=== PATIENT | male | born 1985 | race Two or more races ===

== ENCOUNTER 2021-06-08 09:11 | Emergency (ER) | payer MEDICAID, SELFPAY ==
--- NOTE | ~2021-06-08 | XR_ITS ---
EXAMINATION: XR CHEST CLINICAL INFORMATION: Chest pain COMPARISON: April 24, 2019 TECHNIQUE: 2 views of the chest were obtained. FINDINGS: No significant abnormality is noted involving the heart, lungs, mediastinum, bony thorax or soft tissues. Neural stimulator wires posteriorly. XR/XR chest 2V IMPRESSION: No acute disease.
--- NOTE | 2021-06-08 09:50 | ECG_ITS ---
Test Reason : CHEST PAIN Blood Pressure : / mmHG Vent. Rate : 074 BPM Atrial Rate : 074 BPM P-R Int : 168 ms QRS Dur : 084 ms QT Int : 378 ms P-R-T Axes : 046 044 043 degrees QTc Int : 419 ms Normal sinus rhythm Normal ECG When compared with ECG of 19-FEB-2018 09:21, No significant change was found Referred By: Generic ED Physician Electronically Signed By:RENO HUTCHINSON MD
[2021-06-08 10:12] VITALS: BP 116/76; PULSE 65; RESP 14; O2SAT 98; BMI 27.9
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
[2021-06-08 11:16] LABS: MANUAL DIFF FLAG NO
[2021-06-08 11:19] LABS: Basophils Percent Auto 0.2 % (0-2); Eosinophils Absolute Auto 0.1 X10*3/uL (0.0-0.4); Eosinophils Percent Auto 1.4 % (0-4); Hematocrit 41.7 % (42-52); Imm Gran Abs Auto 0.02 X10*3/uL (0.00-0.03); Imm Gran Pct Auto 0.2 % (0.0-0.4); Lymphocytes Absolute Auto 2.1 X10*3/uL (1.2-4.9); Lymphocytes Percent Auto 24.5 % (20-40); Mean Corpuscular HGB Conc 33.6 g/dl (31.0-36.0); Mean Corpuscular Hemoglobin 29.7 pg (27.0-33.0); Mean Corpuscular Volume 88.5 fL (80-98); Mean Platelet Volume 8.9 fL (9.4-12.4); Monocytes Absolute Auto 0.5 X10*3/uL (0.1-1.2); Monocytes Percent Auto 5.3 % (2-11); Neutrophils Percent Auto 68.4 % (45-73); Platelet Count 210 X10*3/uL (160-400); Red Blood Count 4.71 X10*6/uL (4.60-5.80); Red Cell Distribution Width 13.1 % (11.0-16.0); White Blood Count 8.7 X10*3/uL (4.8-10.8)
[2021-06-08] MEDS: Ibuprofen 600 MG TABLET PO (11:33)
[2021-06-08 11:39] LABS: Alanine Aminotransferase 31 U/L (0-40); Albumin Level 4.1 g/dL (3.5-5.0); Alkaline Phosphatase 86 U/L (39-117); Anion Gap 10 (12-20); Aspartate Amino Transferase 24 U/L (5-37); Bilirubin Direct 0.2 mg/dL (0.0-0.5); Bilirubin Total 0.4 mg/dL (0.0-1.0); Blood Urea Nitrogen 13 mg/dL (9-16); Calcium 9.5 mg/dL (8.4-10.2); Carbon Dioxide 29 mmol/L (22-29); Chloride 105 mmol/L (96-108); Creatinine Clr Calc Pharmacy 117.7; Estimated Glomerular Filt Rate > 60; Glucose Random 106 mg/dL (60-115); Magnesium 2.1 mg/dL (1.6-2.6); Potassium 4.8 mmol/L (3.3-5.1); Sodium 139 mmol/L (135-145); Total Protein 6.6 g/dL (6.5-8.0)
[2021-06-08 11:44] LABS: Troponin-I High Sensitivity < 3.5 ng/L (<3.5-35.0)
[2021-06-08 13:14] VITALS: BP 121/76; PULSE 57; RESP 16; TEMP 36.5; O2SAT 97
[2021-06-08 13:46] LABS: Troponin-I High Sensitivity < 3.5 ng/L (<3.5-35.0)
== END 2021-06-08 13:57 | disposition home or self-care (01) ==
PROVIDERS: Physician Assistant; Emergency Provider Emergency Medicine
DX: R07.9 Chest pain, unspecified (principal); F17.210 Nicotine dependence, cigarettes, uncomplicated
CPT/HCPCS: 36415; 71046; 80048; 80076; 83735; 84484; 85025; 93005; 99283; 99284

== ENCOUNTER 2021-07-11 16:19 | Emergency (ER) | payer MEDICAID, SELFPAY ==
[2021-07-11 16:54] VITALS: BP 130/79; PULSE 92; RESP 18; TEMP 36.9; O2SAT 98; BMI 23.6
--- NOTE | 2021-07-11 18:01 | PC.NURSE ---
PT HAS SWELLING RIGHT CHEEK/UNDER EYE. WOKE UP WITH SWELLING. HAS GUM PAIN. TALKING AND MANAGING SECRETIONS. WAITING EVAL.
--- NOTE | 2021-07-11 18:15 | ED_ITS ---
HPI - General Adult General Chief complaint: General Medical Stated complaint: half of face swollen Time Seen by Provider: 07/11/21 18:00 Source: patient Mode of arrival: ambulatory Limitations: no limitations History of Present Illness HPI narrative: 36-year-old male who presents emergency department for evaluation of swelling and pain of his right face. The patient states he developed pain in his right upper gums/gingiva yesterday. He states that he had a prescription for penicillin and he started penicillin 500 mg 3 times a day. He states that today he woke up and the pain was worse. Describes the pain as a constant, throbbing sensation which is 8/10 at its worst. He is also complaining of swelling of the right side of his face and a headache. He states that the headache is a constant, throbbing pain which is 8/10 as well. He denied fever, chills, chest pain, shortness of breath, fatigue, myalgias, arthralgias. The patient denies any pain in the teeth that his right upper jaw, he states that he has some bad teeth in his right lower jaw. He states that he has been treated by the dentist at [facility] in the past. Related Data Previous Rx's Medication Instructions Recorded clindamycin HCl 300 mg capsule 600 mg PO TID 10 Days #60 cap 07/11/21 (Cleocin HCl) oxycodone 5 mg tablet 5 mg PO Q4H PRN #14 tab 07/11/21 Allergies Allergy/AdvReac Type Severity Reaction Status Date / Time No Known Allergies Allergy Verified 07/11/21 17:59 [No Known Allergies*] Review of Systems Review of Systems: Yes all other systems are reviewed and are negative [facility] Past Medical History [facility] Narrative: Past medical history: None. Past surgical history: None. Social history: He smokes 6-7 cigarettes per day times many years. He denies alcohol use. He denies drug use. Medical History (Updated 07/11/21 @ 18:26 by Sergo Vital MD) No known health problems Social History Social History Advance Directives: No Advance Directives Information Provided: Yes Physical Exam Vital Signs: Vital Signs: Last Vital Signs Temp 98.5 F 07/11/21 16:54 Pulse 92 07/11/21 16:54 Resp 18 07/11/21 16:54 BP 130/79 07/11/21 16:54 Pulse Ox 98 07/11/21 16:54 Body Mass Index 23.6 Const: Other: Patient has obvious right-sided facial swelling mainly involving the upper part of his face with edema below the right eye General: cooperative Nutritional Appearance: well nourished Orientation/consciousness: oriented to person and oriented to place HENMT: Other: Swelling of the right upper part of the face as described above Head: Yes normocephalic and Yes atraumatic Ears: external ears normal General nose exam: Normal external nose present Face and sinus: Yes normal facial exam Mouth: Normal oral and palatal mucosa present Teeth image: 1. Metal filling which appears crack 2. Metal filling which appears crack 3. Dental caries 4. Dental eladio 5. Gingival swelling with tenderness Throat: Yes posterior oropharynx normal Eyes: General: appearance normal, both eyes and all related structures (Except for edema beneath beneath the eye) Pupils: Equal, round and reactive pupils present EOM: EOMs intact bilaterally Neck: Neck: Yes normal visual inspection, Yes no meningeal signs, Yes trachea midline and Yes supple Chest: Chest palpation & inspection: normal inspection of the chest Resp: Effort & Inspection: normal respiratory effort Skin: General skin exam: no rashes or lesions noted Neuro: General: oriented to person, oriented to place and no meningeal signs Cranial nerves: Yes CN's II-XII intact bilaterally and Yes Equal, round and reactive pupils present Psych: Appearance: grossly normal Mental Status: mental status grossly normal Speech and movement: Normal speech and movement present Course Course Course Narrative: 36-year-old male who presents emergency department for evaluation of right upper jaw pain and right-sided upper facial swelling, examination did reveal right upper jaw gingival swelling with 2 teeth that have cracked feelings which I believe are the cause of his symptoms and is consistent with dental abscess/dental infection. The patient is taken 2 days of penicillin with no improvement therefore he is advised to stop taking penicillin and was started on clindamycin 600 mg 3 times a day for 10 days. He was also advised to take Tylenol and ibuprofen for pain and for pain not relieved by these medications he was prescribed oxycodone. Patient was discharged home. The patient was given verbal and printed instructions prior to discharge. The patient was advised to follow-up with his PCP in 2 days and to return to the emergency department if his symptoms get worse or if he develops any new symptoms that are concerning to him. Discharge Plan Discharge Clinical Impression: Dental abscess, Acute facial pain Patient Disposition: Home, Self-Care Instructions: Dental Abscess (ED) Additional Instructions: Your symptoms and exam are consistent with an abscess of your teeth which has spread to the gums which is causing the swelling of your face. Stop taking penicillin. Take clindamycin 600 mg, 1 pill 3 times a day (every 6 hours while awake) for 10 days. Take ibuprofen 200 mg pills, 3 pills every 6 hours as needed for pain. Take Tylenol (acetaminophen) 500 mg pills, 2 pills every 4-6 hours as needed for pain. For pain not relieved by ibuprofen or Tylenol take oxycodone 5 mg pills, 1 pill every 4 hours as needed for pain. Do not drive or work while taking this medication since they can cause sleepiness. Oxycodone is a narcotic medication that can be addicting. If you are concerned about addiction you can ask the pharmacist for less pills or do not get this prescription filled. Apply a heating pad on low for 15 minutes 4 to 6 times a day to your face to help increase the blood flow to the area of your face and help fight off the infection. Follow-up with your dentist tomorrow for re-evaluation. Please return to the emergency department if your symptoms get worse or if you develop any symptoms that are concerning to you. Prescriptions: New oxycodone 5 mg tablet 5 mg PO Q4H PRN (Reason: pain) Qty: 14 RF: 0 clindamycin HCl [Cleocin HCl] 300 mg capsule 600 mg PO TID 10 Days Qty: 60 RF: 0
[2021-07-11 18:21] VITALS: BP 114/67; PULSE 78; RESP 16; TEMP 36.4; O2SAT 99
[2021-07-11] MEDS: Clindamycin HCL 300 MG CAPSULE 600 MG PO (18:35)
[2021-07-11] MEDS: Ibuprofen 600 MG TABLET PO (18:36)
[2021-07-11] MEDS: oxyCODONE HCl Immed Release 5 MG TABLET PO (18:36)
== END 2021-07-11 18:42 | disposition home or self-care (01) ==
PROVIDERS: Emergency Provider Emergency Medicine Emergency Medical Services; PCP Internal Medicine Endocrinology, Diabetes & Metabolism
DX: K04.7 Periapical abscess without sinus (principal); R51.9 Headache, unspecified; Z79.899 Other long term (current) drug therapy
CPT/HCPCS: 99283; 99284

== ENCOUNTER 2022-12-19 23:21 | Emergency (ER) | payer MEDICAID, SELFPAY ==
--- NOTE | ~2022-12-19 | CT_ITS ---
EXAMINATION: HEAD CT WITHOUT CONTRAST CERVICAL SPINE CT WITHOUT CONTRAST CLINICAL INFORMATION: Fall. Swelling. COMPARISON: MRI dated 02/20/2017 TECHNIQUE: Contiguous axial imaging of the head was performed without the administration of IV contrast. Axial multidetector volumetric images were also performed through the cervical spine without intravenous contrast. Multiplanar reconstructed images in coronal and sagittal orientations were submitted. This CT examination was performed using dose optimization techniques as appropriate, variously including the following: *Automated exposure control *Adjustment of mA and/or kV according to patient size (this includes techniques or standardized protocols for targeted exams where dose is matched to indication/reason for exam; i.e. extremities or head) *Use of iterative reconstruction technique DOSE: 746 mGy-cm FINDINGS: HEAD: There is no evidence of acute intracranial hemorrhage or territorial infarction. No abnormal mass-effect or midline shift. No extra-axial fluid collections. Oneill to white matter differentiation is well preserved. The ventricles are normal in size and configuration. There is no abnormal attenuation within the brain parenchyma. The soft tissues and osseous structures are normal. The sinuses and mastoid air cells are clear. CERVICAL SPINE: Vertebral body heights are normal. No fractures of the vertebral bodies or posterior elements. Vertebral alignment is normal. No subluxation. The craniocervical and atlantoaxial articulations are normal. There is mild degenerative disc disease at C3-C4 and C5-C6 with loss of intervertebral disc height and vertebral osteophytes. There is abnormal morphology of the left T1-T2 facet joint, partially imaged. Facet joints are normal in cervical spine. Spinal stimulator leads are present in the dorsal epidural space between the level of the superior endplate of C3 and the interbody space of C5-C6. There is at least mild central canal narrowing at the level of C3-C4 due to posterior disc osteophyte complex. Uncovertebral osteophytes produce neural foraminal encroachment at C3-C4 and C5-C6 bilaterally. No significant paravertebral soft tissue swelling. Cervical soft tissues are unremarkable. Imaged portions of the lung apices are clear. CT/CT cervical spine wo IV con IMPRESSION: 1. No acute intracranial pathology. 2. No acute fracture or malalignment in the cervical spine. 3. Mild degenerative disc disease at C3-C4 and C5-C6.
[2022-12-19 23:29] VITALS: BP 106/73; PULSE 111; RESP 18; TEMP 36.6; O2SAT 96; BMI 25.0
--- OUTSIDE RECORDS SUMMARY | 2022-12-20 00:01 | XMS_ITS ---
:1985 Author Care Team Providers Name Role Phone Semaj Lester Primary Care Provider Unavailable Allergies Code Code System Name Reaction Severity Status Onset NKDA ? Notes: PER PT Medications Name Status Start Date Stop Date ? ? clonidine HCl 0.1 mg tablet Active ? Not available Take 1 tablet twice a day by oral route as needed. gabapentin 600 mg tablet Active ? Not gerald ilable Take 4 tablets every day by oral route. ibuprofen 800 mg tablet Active ? Not avai lable Take 1 tablet 3 times a day by oral route as needed. TAKE WITH FOOD. Narcan 4 mg/actuation nasal spray Active ? Not available Take 1 spray by nasal route. Suboxone 8 mg-2 mg sublingual film Active ? Not available Place 2 films every day by sublingual route. Problems Name Status Onset Date Source ? Opioid Dependence Active 07/05/2021 ? Nicotine Dependence with Current Use Active 07/05/2021 ? Procedures None recorded. Results Lab Results Date Name Specimen Result Interpretation Description Value Range Status Address ? 07/05/2021 CBC W/ Normal White Blood 8.1 3.8-10.8 Final [facility] Cell Count thousand/uL thousand/uL [facility]- [facility] [place] [facility]: [address] [place] ? ? Normal Red Blood 4.68 4.20-5.80 Final [facility] st Cell Count million/uL million/uL Diagnostics- [place] [facility]: [address] [place] ? ? Normal Hemoglobin 14.2 g/dL 13.2-17.1 Final [facility] g/dL Diagnostic s- [place] [facility]: [address] [place] ? ? Normal Hematocrit 41.3 % 38.5-50.0 % Final [facility] [place] [facility]: [address] [place] ? ? Normal Mcv 88.2 fL 80.0-100.0 Final [facility] fL [facility]- [place] [facility]: [address] [place] ? ? Normal Mch 30.3 pg 27.0-33.0 pg Final [facility] st Diagnostic s- [place] [facility]: [address] [place] ? ? Normal Mchc 34.4 g/dL 32.0-36.0 Final Ques t g/dL Diagnostic s- [place] [facility]: [address] [place] ? ? Normal Rdw 13.0 % 11.0-15.0 % Final [facility] [place] [facility]: [address] [place] ? ? Normal Platelet 262 140-400 Final [facility] Count thousand/uL thousand/uL [facility]- [place] [facility]: [address] [place] ? ? Normal Mpv 9.2 fL 7.5-12.5 fL Final [facility] [place] [facility]: [address] [place] ? ? Normal Absolute [phone] Final Ques t Neutrophils cells/uL cells/uL D iagnostics- [place] [facility]: [address] [place] ? ? Normal Absolute 3070 850-3900 Final [facility] Lymphocytes cells/uL cells/uL D [facility]agn[facility]- [place] [facility]: [address] [place] ? ? Normal Absolute 567 cells/uL 200-950 Final [facility] Monocytes cells/uL Diagn ost[facility]- [place] [facility]: [address] [place] ? ? Normal Absolute 57 cells/uL 15-500 Final Qu est Eosinophils cells/uL [facility]- [place] [facility]: [address] [place] ? ? Normal Absolute 41 cells/uL 0-200 Final Qu est Basophils cells/uL Diagn ost[facility]- [place] [facility]: [address] [place] ? ? Normal Neutrophils 53.9 % ? Final [facility] t Diagnostic [facility]- [place] [facility]: [address] [place] ? ? Normal Lymphocytes 37.9 % ? Final [facility]- [place] [facility]: [address] [place] ? ? Normal Monocytes 7.0 % ? Final [facility] [place] [facility]: [address] [place] ? ? Normal Eosinophils 0.7 % ? Final [facility] t [facility]- [place] [facility]: [address] [place] ? ? Normal Basophils 0.5 % ? Final [facility] [place] [facility]: [address] [place] Past Encounters Encounter Date Diagnosis Provider 07/07/2021 Opioid Dependence Suki Kirkpatrick, NETWORK SECURITY ARCHITECT: [address] [place] [address], [facility] [address] [address], Ph. [phone] 07/05/2021 Opioid Dependence; Nicotine Semaj Lester, NETWORK SECURITY ARCHITECT: [address] [place] [address] Dependence [place] [address], Ph. Social History Tobacco Smoking Status Heavy Tobacco Smoker (1/2 pack per da y) Vaccine List Notes: no counselor currently-interest ed in counseling Plan of Care Patient Instructions As part of your individualized treatmen t plan and program requirement, you will need to bring your correct prescription bottl e and all used and unused medication and counseling verification to each appointm ent; > Agree to participate in counseling and bring counseling verification to each ap pointment; > Agree to present for random visits; > Agree to not falsify your urin e specimens. Abstain from opiates for 24 hours unles s directed by provider; > If already taking buprenorphine, do not take a dose the day of the induction until you are in the office with your provider; > Com fort medications were recommended. If ac cepted, please take as prescribed to support your ability to abstain from opiates until your buprenorphine induction; > Keep your buprenorphine RX package clos ed until you are seen by your provider f or induction unless otherwise directed; If you have problems abstaining from opiates, please call the office. As part of your individualized treatmen t plan and program requirement, you will need to bring your correct prescription bottle and all used and unused medication and counseling verification to each chelly ointment; > Agree to participate in coun seling and bring counseling verification to each appointment; > Agree to present for random visits; > Agree to not falsify your urine specimens. Reminders Provider Appointments None recorded. ? ? Lab None recorded. ? ? Referral None recorded. ? ? Procedures None recorded. ? ? Surgeries None recorded. ? ? Imaging None recorded. ? ? Vitals None recorded.
--- NOTE | 2022-12-20 00:48 | ED.FALL ---
HPI - Fall General Chief Complaint: Fall Stated Complaint: head inj from fall? Time Seen by Provider: 12/20/22 00:47 Source: patient Mode of arrival: ambulatory Limitations: no limitations History of Present Illness HPI Narrative: Nan patient fell down while going downstairs to basement about an hour prior to arrival tripped on tools on the stairs hit right side of the head to the wall and the ground came with a scratch arnold and swelling right temporal area no loss of consciousness no other injuries complaining of headache+ no nausea no vomiting Related Data Previous Rx's Medication Instructions Recorded clindamycin HCl 300 mg capsule 600 mg PO TID 10 days #60 caps 07/11/21 (Cleocin HCl) oxycodone 5 mg tablet 5 mg PO Q4H PRN pain #14 tabs 07/11/21 Allergies Allergy/AdvReac Type Severity Reaction Status Date / Time No Known Allergies Allergy Verified 12/19/22 23:29 [No Known Allergies*] Review of Systems Review of Systems: Yes all other systems are reviewed and are negative [facility] Past Medical History Medical History No known health problems Social History Social History Advance Directives: No Advance Directives Information Provided: Yes Physical Exam Vital Signs: Vital Signs: Last Vital Signs Temp 97.9 F 12/19/22 23:29 Pulse 111 H 12/19/22 23:29 Resp 18 12/19/22 23:29 BP 106/73 12/19/22 23:29 Pulse Ox 96 12/19/22 23:29 O2 Del Method 12/19/22 23:29 BMI result Body Mass Index 25.0 Appearance: Alert. Oriented X3. No acute distress. Eyes: PERRLA, No Nystagmus ENT: Pharynx normal. Oral Mucosa moist tympanic membrane intact no discharge no hemotympanum Neck: Normal inspection. Neck supple. CVS: Normal heart rate and rhythm. Pulses normal. Respiratory: No respiratory distress. Equal air entry bilateral, no wheezing/rales/rhonchi Abdomen: Soft and nontender. Bowel sounds are present, no mass palpable, no CVA tenderness Skin: Skin warm and dry. Normal skin color. Normal skin turgor. Extremities: No lower extremity edema. No calf tenderness Neuro: Oriented X 3. No motor deficit. No sensory deficit.No cerebellar signs , cranial nerves II-XII intact HEENT: Head images: 1. Soft tissue swelling with abrasion be in the right ear Ears: hearing grossly normal bilaterally and TM's normal bilaterally Outer ear/TM images: 1. 0.5 cm superficial laceration Procedures Laceration Laceration 1: Size (cm): 0.5 Description: linear and clean Depth: simple, single layer Skin layer closed with: other (Dermabond) Medical Decision Making Medical Decision Making [facility] Narrative: Patient had CT and C-spine negative had sutures laceration right pinna which was glued with Dermabond Discharge Plan Discharge Clinical Impression: Head injury Patient Disposition: Home, Self-Care Instructions: Head Injury (ED) Additional Instructions: Care and cautions advised Tylenol/ Motrin for pain Prescriptions: No Action oxycodone 5 mg tablet 5 mg PO Q4H PRN (Reason: pain) Qty: 14 0RF Rx Instructions: Patient may request partial fill clindamycin HCl [Cleocin HCl] 300 mg capsule 600 mg PO TID 10 Days Qty: 60 0RF Discharge Date/Time: 12/20/22 03:45
== END 2022-12-20 03:45 | disposition home or self-care (01) ==
PROVIDERS: Emergency Provider Internal Medicine
DX: S01.01XA Laceration without foreign body of scalp, initial encounter (principal); S01.91XA Laceration without foreign body of unspecified part of head, initial encounter; R51.9 Headache, unspecified; M54.2 Cervicalgia; W01.0XXA Fall on same level from slipping, tripping and stumbling without subsequent striking against object, initial encounter; Y93.9 Activity, unspecified; Y92.9 Unspecified place or not applicable; Y99.9 Unspecified external cause status
CPT/HCPCS: 12011; 70450; 72125; 99281; 99284

== ENCOUNTER 2024-10-13 11:53 | Emergency (ER) | payer MEDICAID, SELFPAY ==
[2024-10-13 12:03] VITALS: BP 109/79; PULSE 81; RESP 16; TEMP 36.7; O2SAT 97; BMI 26.4
--- NOTE | 2024-10-13 12:06 | ED.GENADULT ---
HPI - General Adult General Chief complaint: Wound/Laceration Stated complaint: Lac R arm Time Seen by Provider: 10/13/24 14:26 Source: patient Mode of arrival: ambulatory Limitations: no limitations History of Present Illness ED Provider: Colton Bond HPI narrative: 39 yold male healthy presents to the ED right forearm laceration. patient fell in the shower and cut his arm on metal bar in the shower. Patient denies hitting head or loss of concssouness. Related Data Previous Rx's ?Medication ?Instructions ?Recorded clindamycin HCl 300 mg capsule 600 mg (2 x 300 mg) PO TID 10 days 07/11/21 (Cleocin HCl) #60 caps oxycodone 5 mg tablet 5 mg PO Q4H PRN pain #14 tabs 07/11/21 cephalexin 500 mg capsule 500 mg PO QID 7 days #28 caps 10/13/24 naproxen 500 mg tablet 500 mg PO BID PRN pain #14 tabs 10/13/24 Allergies Allergy/AdvReac Type Severity Reaction Status Date / Time No Known Allergies Allergy Verified 10/13/24 12:04 [No Known Allergies*] Review of Systems Review of Systems: Right forearm laceration Yes all other systems are reviewed and are negative PMFSH Past Medical History Medical History No known health problems Social History Social History Advance Directives: No Advance Directives Information Provided: Yes Physical Exam ED Vital Signs: Vital Signs - 24 hr 10/13/24 12:03 10/13/24 14:15 10/13/24 16:39 Temperature 98.0 F 98.8 F 97.8 F Pulse Rate 81 78 64 Respiratory Rate 16 16 16 Blood Pressure 109/79 123/74 128/73 Pulse Oximetry 97 95 99 Oxygen Delivery Method Room Air Room Air Room Air 10/13/24 16:43 Temperature 97.8 F Pulse Rate 64 Respiratory Rate 16 Blood Pressure 128/73 Pulse Oximetry 99 Oxygen Delivery Method Room Air BMI result Body Mass Index 26.4 Const General: cooperative, healthy appearing, comfortable, no acute distress, well developed, alert, awake and Physically active Orientation/consciousness: patient oriented x3 HENMT Head: Yes normal to inspection, Yes No palpable skull fracture present, Yes normocephalic and Yes atraumatic Eyes General: appearance normal, both eyes and all related structures Neck Neck: Yes normal visual inspection, Yes full ROM, Yes no lymphadenopathy, Yes no meningeal signs, Yes trachea midline, Yes supple, No anterior neck swelling and No tender Chest Chest palpation & inspection: normal inspection of the chest and normal palpation of entire chest wall Resp Effort & Inspection: normal respiratory effort and able to speak in complete sentences Auscultation: clear to auscultation bilaterally Cardio Jugular venous distension: no JVD Heart sounds: S1 normal heart sound present and S2 normal heart sound present GI Inspection: Yes normal to inspection Palpation (GI): Soft to palpation, not firm, nontender, no guarding and not rigid General: No CVA tenderness and Yes no CVA tenderness Back/Spine/Pelvis Back: no CVA tenderness, No CVA tenderness and No back tenderness Skin Other: right forearm laceration Neuro General: patient oriented x3, gait normal, tone normal, moves all extremities, Normal light touch and pain sensation, no meningeal signs, no focal motor deficits, CN's II-XI intact bilaterally and normal sensation to monofilament Extrem General: Yes normal to inspection, Yes full ROM and Yes capillary refill normal Elbow/forearm/wrist images: 1. Positive for 3 mm laceration. Bleeding controlled. Rest of extremity normal. Motor/neuro/vascular exam intact. Washed out no foreign body Psych Appearance: grossly normal, well kempt and not disheveled Course Course Course Narrative: RME, this is a rapid medical exam performed by Cruz Goodwin please refer to primary provider for complete H&P- 39-year-old male presents for evaluation of a laceration to his right forearm. He reports that he slipped in the shower due to a known history of foot drop. He cut his arm on a metal bar next to the shower. He has about a 3 cm wound. He reports his tetanus is up-to-date within the last 5 years. Medications Administered Discontinued Medications Generic Name Dose Route Start Last Admin Trade Name Freq PRN Reason Stop Dose Admin Lidocaine HCl 5 ml 10/13/24 14:56 10/13/24 15:26 Lidocaine Hcl 1 % Mpf 5 Ml Vial INFILTRATI 10/13/24 14:57 5 ml ONCE ONE Administration Lidocaine HCl 5 ml 10/13/24 14:56 10/13/24 15:26 Lidocaine Hcl 1 % Mpf 5 Ml Vial INFILTRATI 10/13/24 14:57 5 ml ONCE ONE Administration Medical Decision Making Medical Decision Making [facility] Narrative: 39-year-old male presents to ED for right arm forearm laceration. Patient states uptodate with Tdap. Wound cleaned with sterile saline and Betadine iodine. 10 mL of 1% lidocaine injected for anesthesia of laceration. Size 3 nylon sutures were used. one vertical mattress suture was placed. Seven simple sutures were placed also. Patient will be discharged with antibiotics. Not suspecting any osteomyelitis, cellulitis, tendon/nerve injury, diloscation, fracture, brain bleed, skull fracture, any other life-threatening etiology. Patient explained worrisome signs and informed to return to the ED immediately. Differential Diagnosis Differential Diagnoses: The differential diagnosis associated with the presentation includes (Laceration) Admission/Observation Consideration of admission/observation: Escalation of care including admission/observation considered Lab Data [facility] Lab Attestation statement: I reviewed the patient's lab results. Independent Historian Clinical information obtained from an independent historian. History obtained from or confirmed by: Other (Patient) External Record Review External record reviewed: Other (Prior visits) Prescription Management I considered prescription management with: Antibiotic Discharge Plan Discharge Clinical Impression: Laceration Patient Disposition: Home, Self-Care Instructions: Laceration (ED) Additional Instructions: Sutures to be dry the 1st 48 hours. Sutures should be removed at any urgent Care this ED or primary care with in the next 10-11 days. Return to the ED immediately for any redness, pus discharge, foul odor, red streaks, bluish black discoloration, fever, chills, severe pain, or any other concerning symptoms. Prescriptions: New cephalexin 500 mg capsule 500 mg PO QID 7 Days Qty: 28 0RF naproxen 500 mg tablet 500 mg PO BID PRN (Reason: pain) Qty: 14 0RF No Action oxycodone 5 mg tablet 5 mg PO Q4H PRN (Reason: pain) Qty: 14 0RF Rx Instructions: Patient may request partial fill clindamycin HCl [Cleocin HCl] 300 mg capsule 600 mg PO TID 10 Days Qty: 60 0RF Stand Alone Forms: Work/School Release Interventions: ED Discharge Assessment Last Done: 10/13/24 16:43 Discharge Date/Time: 10/13/24 16:43 Print Language: Belarusian
[2024-10-13 14:15] VITALS: BP 123/74; PULSE 78; RESP 16; TEMP 37.1; O2SAT 95
[2024-10-13] MEDS: Lidocaine HCl 1 % MPF 5 ML VIAL INFILTRATI ×2 (15:26)
[2024-10-13 16:39] VITALS: BP 128/73; PULSE 64; RESP 16; TEMP 36.6; O2SAT 99
--- NOTE | 2024-10-13 16:42 | PC.NURSE ---
Cleaned and wrapped pt.'s sutures with a non-stick gauze, wrapped with bulkee dressing per verbal orders of FLETCHER Beltran.
[2024-10-13 16:43] VITALS: BP 128/73; PULSE 64; RESP 16; TEMP 36.6; O2SAT 99
== END 2024-10-13 16:43 | disposition home or self-care (01) ==
PROVIDERS: Emergency Provider Emergency Medicine Emergency Medical Services; PCP Internal Medicine Geriatric Medicine
DX: S51.811A Laceration without foreign body of right forearm, initial encounter (principal); W18.2XXA Fall in (into) shower or empty bathtub, initial encounter; M79.631 Pain in right forearm; Y93.E1 Activity, personal bathing and showering; Y92.002 Bathroom of unspecified non-institutional (private) residence as the place of occurrence of the external cause; Y99.9 Unspecified external cause status
CPT/HCPCS: 12002; 99283; 99284; J2003

== ENCOUNTER 2025-08-05 12:58 | Outpatient (AMB) | payer MEDICAID, SELFPAY ==
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
== END 2025-08-05 13:37 | disposition home or self-care (01) ==
LOC: HO.HUSH 12:59
PROVIDERS: PCP Internal Medicine Geriatric Medicine; Visit Provider Urology
DX: N52.8 Other male erectile dysfunction (principal); N40.1 Benign prostatic hyperplasia with lower urinary tract symptoms; R33.9 Retention of urine, unspecified
CPT/HCPCS: 99204

== ENCOUNTER → 2025-08-05 12:58 | Outpatient (BNVA) | payer MEDICAID, SELFPAY | PROVIDERS: PCP Internal Medicine Geriatric Medicine; Visit Provider Urology | DX: N40.1 Benign prostatic hyperplasia with lower urinary tract symptoms (principal); R33.9 Retention of urine, unspecified; N52.8 Other male erectile dysfunction | CPT/HCPCS: 51798; 99202 ==

== ENCOUNTER 2025-10-02 08:37 | Outpatient (REF) | payer MEDICAID, SELFPAY ==
--- OUTSIDE RECORDS SUMMARY | 2022-11-09 07:07 | XMS_ITS | Continuity of Care Document ---
Author Organization [facility] Address [address] [place] [address] Phone Care Team Providers Care [employer] Name Role Phone Unavailable Unavailable Unavailable Allergies, Adverse Reactions, Alerts Substance Reaction Status Criticality No Known Allergies Active No Inform ation Medications Medication Instructions Dosage Effective Dates (start - stop) Status Comments guaifenesin 100 mg/5 mL oral liquid take 10 milliliter by oral route every 4 hours as needed 200 MG - Active ibuprofen 800 mg tablet take 1 tablet by oral route 3 times every day with food 800 MG - Active lidocaine 5 % topical patch apply 1 patch by transdermal route every day (May wear up to 12hours.) for left rib pain 1.00 patch - Active triamcinolone acetonide 0.1 % topical ointment apply by topical route 2 times every day a thin layer to the affected area(s) for left neck 0.00 - Active Procedures Procedure Date OFFICE/OUTPATIENT VISIT, EST IMMUNIZATION ADMIN TDAP VACCINE >7 IM OFFICE/OUTPATIENT VISIT, NEW Advance Directives Directive Yes / No Effective Date File Name No Information Encounters Encounter Description Practice Location Reason(s) For Visit Diagnoses Date Provider Providers Copied on Encounter [facility], [address] [place] [address],[address], [place], [place], [id number], [place] tel:[phone] No Information Jairo-1 3-202 3 No Information OFFICE/OUTPA TIENT VISIT, [facility], [address], [place], [place], [id number], [place] tel:[phone] [facility] Cold symptoms (chief complaint) COVID-19 1 No Information OFFICE/OUTPA TIENT VISIT, NEW [facility], [address], [place], [place], [id number], [place] tel:[phone] [facility] Follow Up of ER (chief complaint) Musculoske letal pain (chief complaint) Sprain of costal cartilage, subsequent encounterScree breanna cholesterol levelScreening for diabetes mellitusDermat itis 9 No Information Family History Family Member Type Diagnosis Age At Onset No Information Immunizations Vaccine Date Status Comments Tdap (Adacel) administered Source: New munization Record Payers Payer name Insurance type Covered libertarian ID Authorreginoa dipika(s) [facility] [id number] [facility] [id number] [facility] [id number] [facility] [id number] Social History Type Description Quantity Date Captured Comments Alcohol Use Details Unknown Caffeine Use Details Unknown Tobacco Use Status No Information Smoking Status No Information Sex Male Sexual Orientation Straight or heterosexual Chief Complaint And Reason For Visit No Information Reason For Referral Reason For Referral No Information Plan Of Treatment Date Type Action Status Goal Colonoscopy. Due on 023 due Goal Tdap due Goal APE. Due on due Goal CT-Colonography. Due on due Goal Unhealthy drug use screening . Due on due Goal Document SOGI Information. D ue on due Goal FIT-DNA. Due on due Goal FOBT. Due on due Goal Diabetes Screening. Due on Bobby an due Goal Influenza vaccine. Due on Michael due Goal Unhealthy drug use screening . Due on due Goal APE. Due on due Goal Influenza vaccine. Due on Jorgito due Goal Document SOGI Information. D ue on due Goal Tdap due Goal Diabetes Screening. Due on Danitza due Goal Document SOGI Information. D ue on due Goal Influenza vaccine. Due on due Goal Tdap. Due on due Goal APE. Due on due Goal Diabetes Screening. Due on Danitza due History Of Present Illness Encounter Date Complaint History Of Prese nt Illness Cold symptoms Onset: 3 weeks a go. The patient describes the cough as moist and productive. The problem has improved. Associated symptoms include headache. Pertinent negatives include chills, cough, dyspnea, fatigue and fever. Additional information: Positive COVID 02/11. No known positive contact. most sx resolved <1 week ago. quarantine ended 02/24. I don't know why I still have a cough . Musculoskeletal pain Onset: 1 we ek ago. Severity level is 4. It occurs intermittently and is improving. Location: left rib. Context: sports injury (soccer). The pain is aggravated by bending and movement. The pain is relieved by pain/RX meds and lidoderm has 1 left. 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 Follow Up of ER NPP and provider last visit to PCP in [place] several mos ago Functional Status Date Functional Assessmen t No Information Instructions Date Instruction Additional Infor mation No Information Assessments Type Assessment Date No Information Patient Care Teams Name Effective Dates (start - stop) Status Members No Information
--- OUTSIDE RECORDS SUMMARY | 2025-10-02 08:39 | XMS_ITS | Encounter Summary ---
Author Organization [facility] Address [address] [place] [address] Care Team Providers Care Emissions Testing And Repair Technician Name Role Phone Name, Rex TREJO Primary Care Provider [phone] Name, Rex TREJO Primary Care Provider [phone] Reason for Visit * Reason Comments Med Refill Encounter Details Date Type Department Care Team (Late st Contact Info) Description 06/27/2023 Refill [facility] MEDICINE [address] [place] [id number] Bijal Whitlock FNP [address], [place] [phone] Other chronic pain Social History Tobacco Use Types Packs/Day Years Used Date Smoking Tobacco: Never Assessed Sex and Gender Information Value Date Recorded Sex Assigned at Male 08/27/2022 10:31 AM EDT Legal Sex Male 10:31 AM EDT Gender Identity Male 08/27/2022 10:31 AM EDT Sexual Orientation Straight 08/27/2022 10 :31 AM EDT documented as of this encounter Plan of Treatment Upcoming Encounters Date Type Department Care Team (Late st Contact Info) Description 10/04/2025 2:45 PM EST Office Visit [facility] MEDICINE [address] [place] [id number] NameRex MD [address] [place] [address] documented as of this encounter Visit Diagnoses Diagnosis Other chronic pain documented in this encounter Care Teams Emissions Testing And Repair Technician Relationship Specialty Start Date End Date NameRex MD [address] [place] [id number] PCP - General Family Medicine 7/29/19 1/4/24 Name, MD Rex [address] [place] [address] PCP - General Internal Medicine 01/14/24 documented as of this encounter
--- OUTSIDE RECORDS SUMMARY | 2025-10-02 08:39 | XMS_ITS | Encounter Summary ---
Author Organization [facility] Address [address] [place] [address] Care Team Providers Care Grading Supervisor Name Role Phone Name, Rex TREJO Primary Care Provider [phone] Name, Rex TREJO Primary Care Provider [phone] Reason for Visit * Reason Comments Med Refill Encounter Details Date Type Department Care Team (Late st Contact Info) Description 06/27/[address] [facility] MEDICINE [address] [place] [address] NameRex MD [address] [place] [address] Social History Tobacco Use Types Packs/Day Years [...] Description 10/04/2025 2:45 PM EST Office Visit [facility] MEDICINE [address] [place] [phone] NameRex MD [address] [place] [address] documented as of this encounter Visit Diagnoses Not on filedocumented in this encounter Care Teams Grading Supervisor Relationship Specialty Start Date End Date NameRex MD [address] [place] [id number] PCP - General Family Medicine 05/25/19 10/31/23 Name, MD [address] [place] [address] PCP - General Internal Medicine 01/14/24 documented as of this encounter
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
--- OUTSIDE RECORDS SUMMARY | 2025-10-02 08:39 | XMS_ITS | Encounter Summary ---
Author Organization [employer] Address [address] [place] [address] [address] [place] [address] Care Team Providers Care Cant Gang Sawyer Name Role Phone Name, Rex TREJO Primary Care Provider [phone] NameRex MD Primary Care Provider [phone] Encounter Details Date Type Department Care Team (Late st Contact Info) Description 10/12/2022 Orders Only [facility] [address] [place], [place] [phone] Priscilla Short LPN Social History Tobacco Use Types Packs/Day Years [...] Description 10/04/2025 2:45 PM EST Office Visit [facility] [address] [place] [address] Rex Greco MD [address] [place] [address] documented as of this encounter Visit Diagnoses Not on filedocumented in this encounter Care Teams Cant Gang Sawyer Relationship Specialty Start Date End Date Rex Greco MD [address] [place] [address] PCP - General Family Medicine 05/25/19 10/31/23 Rex Greco MD [address] [place] [address] PCP - General Internal Medicine 01/14/24 documented as of this encounter
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
--- OUTSIDE RECORDS SUMMARY | 2025-10-02 08:39 | XMS_ITS | Encounter Summary ---
Author Organization [facility] Address [address] [place] [id number] Care Team Providers Care Sporting Goods Salesperson Name Role Phone Name, Rex TREJO Primary Care Provider [phone] Name, Rex TREJO Primary Care Provider [phone] Reason for Visit * Reason Comments Med Refill Encounter Details Date Type Department Care Team (Late st Contact Info) Description 05/29/2023 Refill [facility] [address] [place] [phone] NameRex MD [address] [place] [phone] Other chronic pain Social History Tobacco Use [...] Description 10/04/2025 2:45 PM EST Office Visit [facility] [address] [place] [phone] NameRex MD [address] [place] [phone] documented as of this encounter Visit Diagnoses Diagnosis Other chronic pain documented in this encounter Care Teams Sporting Goods Salesperson Relationship Specialty Start Date End Date NameRex MD [address] [place] [phone] PCP - General Family Medicine 05/25/19 10/31/23 Name, MD Rex [address] [place] [address] PCP - General Internal Medicine 01/14/24 documented as of this encounter
[2025-10-02 09:03] LABS: MANUAL DIFF FLAG NO
[2025-10-02 10:14] LABS: Hematocrit 42.4 % (42.0-52.0); Hemoglobin 14.1 g/dl (14.0-18.0); Imm Gran Abs Auto 0.07 X10*3/uL (0.00-0.03); Imm Gran Pct Auto 0.8 % (0.0-0.4); Lymphocytes Absolute Auto 2.6 X10*3/uL (1.2-4.9); Mean Corpuscular HGB Conc 33.3 g/dl (31.0-36.0); Mean Corpuscular Hemoglobin 29.6 pg (27.0-33.0); Mean Corpuscular Volume 88.9 fL (80.0-98.0); NRBC Abs Auto 0.000 X10*3/uL (0.0-0.012); NRBC Pct Auto 0.0 /100WBC (0.0-0.2); Platelet Count 221 X10*3/uL (160-400); Red Blood Count 4.77 X10*6/uL (4.60-5.80); White Blood Count 8.3 X10*3/uL (4.8-10.8)
[2025-10-02 10:50] LABS: Alanine Aminotransferase 21 U/L (0-40); Albumin Level 4.2 g/dL (3.5-5.0); Alkaline Phosphatase 83 U/L (39-117); Anion Gap 12 (12-20); Aspartate Amino Transferase 25 U/L (5-37); Blood Urea Nitrogen 14 mg/dL (9-16); Calcium 9.0 mg/dL (8.4-10.2); Carbon Dioxide 29 mmol/L (22-29); Chloride 105 mmol/L (96-108); Cholesterol 152 mg/dL (<200); Estimated Glomerular Filt Rate > 60; HDL Cholesterol 41 mg/dL (>40); Potassium 4.2 mmol/L (3.3-5.1); Sodium 142 mmol/L (135-145); Total Protein 6.8 g/dL (6.5-8.0); Triglycerides 78 mg/dL (<150)
[2025-10-02 11:00] LABS: HBS Num1 2.21 mIU/mL (0-7.99); HBsAGNum1 0.33 S/CO (0.00-0.99); HIV Num 1 0.06 S/CO (0.00-0.99); Hepatitis B Surface Antigen Negative (Negative); ~HepC Num1 0.23 S/CO (0.00-0.79); ~Hepatitis B Surface Antibody NONREACTIVE (Nonreactive); ~Hepatitis C Antibody Nonreactive (Nonreactive)
== END 2025-10-02 08:38 | disposition home or self-care (01) ==
LOC: HO.LAB 08:37
PROVIDERS: PCP Internal Medicine Geriatric Medicine; Visit Provider Internal Medicine Geriatric Medicine
DX: Z13.220 Encounter for screening for lipoid disorders (principal); R07.9 Chest pain, unspecified; Z11.4 Encounter for screening for human immunodeficiency virus [HIV]; Z11.59 Encounter for screening for other viral diseases
CPT/HCPCS: 36415; 80053; 80061; 85025; 86592; 86706; 86803; 87340; 87389